=== PATIENT | male | born 1935 | race Caucasian/White ===

== ENCOUNTER 2017-07-23 17:13 | Emergency (ER) | payer MEDICARE ==
[2017-07-23] MEDS ORDERED: DiphenhydrAMINE HCL 50 MG/ML VIAL ONE (18:21)
[2017-07-23] MEDS ORDERED: DEXAMETHASONE SOD PHOSPHATE 4 MG/ML 1ML VIAL ONE (18:22)
== END 2017-07-23 19:09 | disposition home or self-care (01) ==
LOC: EDH 17:13
DX: T78.49XA Other allergy, initial encounter (principal); E11.9 Type 2 diabetes mellitus without complications; Z85.828 Personal history of other malignant neoplasm of skin; X58.XXXA Exposure to other specified factors, initial encounter
CPT/HCPCS: 96372 ×2; 99284; J1100; J1200

== ENCOUNTER 2019-05-09 04:58 | Emergency (ER) | payer MEDICARE ==
[2019-05-09 05:45] LABS: BASOPHILS % (AUTO) 0.4 % (0.0-5.0); EOSINOPHILS % (AUTO) 1.4 % (0.0-8.0); HEMATOCRIT 37.4 % (42-54); LYMPHOCYTES % (AUTO) 12.2 % (21.0-51.0); MEAN CORPUSCULAR VOLUME 88.4 fL (79-99); MONOCYTES % (AUTO) 8.3 % (3.0-13.0); NEUTROPHILS % (AUTO) 77.4 % (40.0-77.0); PLATELET COUNT (AUTO) 267 K/uL (130-400); RED BLOOD CELL COUNT(AUTO) 4.23 MIL/uL (4.50-6.20); RED CELL DISTRIBUTION WIDTH 13.2 % (11.0-15.5)
[2019-05-09 06:00] LABS: CREATININE 1.3 mg/dL (0.5-1.5); POTASSIUM 4.3 mmol/L (3.5-5.1)
[2019-05-09 06:03] LABS: APPEARANCE,URINE Clear (CLEAR); BILIRUBIN,URINE Negative (NEGATIVE); COLOR,URINE Yellow (YELLOW); GLUCOSE, URINE (UA) Negative (NEGATIVE); KETONES,URINE Negative (NEGATIVE); LEUKOCYTE ESTERASE ,URINE Negative (NEGATIVE); NITRATE,URINE Negative (NEGATIVE); OCCULT BLOOD,URINE Trace (NEGATIVE); PROTEIN,URINE POS 1+ mg/dL (NEGATIVE); UROBILINOGEN,URINE 0.2 mg/dL (0.2-1.0)
[2019-05-09 06:04] LABS: BILIRUBIN,TOTAL 0.9 mg/dL (0.2-1.0); TOTAL PROTEIN, SERUM 7.6 g/dL (6.0-8.3)
[2019-05-09 06:08] LABS: BACTERIA,URINE None Seen /HPF (None Seen); RBC,URINE None Seen /HPF (0-1); WBC,URINE None Seen /HPF (0-1)
[2019-05-09] MEDS ORDERED: SODIUM CHLORIDE 0.9% 1000ML 1,000 ML IV ONE (06:13)
== END 2019-05-09 07:34 | disposition home or self-care (01) ==
LOC: EDH 04:58
DX: K57.32 Diverticulitis of large intestine without perforation or abscess without bleeding (principal); K59.00 Constipation, unspecified; E11.9 Type 2 diabetes mellitus without complications
CPT/HCPCS: 36415; 74176; 80053; 81001; 83690; 84484; 85025; 93005; 99285; J7030

== ENCOUNTER 2021-07-24 10:29 | Inpatient (IN) | payer MEDICARE ==
[~2021-07-24] VITALS: Ht 175.3 cm; Wt 82.6 kg
[2021-07-24 11:21] LABS: BASOPHILS % (AUTO) 0.3 % (0.0-5.0); EOSINOPHILS % (AUTO) 0.4 % (0.0-8.0); HEMATOCRIT 32.6 % (42-54); LYMPHOCYTES % (AUTO) 6.2 % (21.0-51.0); MEAN CORPUSCULAR HEMOGLOBIN 31.8 pg (27.0-33.0); MEAN CORPUSCULAR HGB CONC 34.4 g/dL (32.0-36.0); MEAN CORPUSCULAR VOLUME 92.6 fL (79-99); MONOCYTES % (AUTO) 7.2 % (3.0-13.0); NEUTROPHILS % (AUTO) 85.4 % (40.0-77.0); PLATELET COUNT (AUTO) 188 K/uL (130-400); RED BLOOD CELL COUNT(AUTO) 3.52 MIL/uL (4.50-6.20); RED CELL DISTRIBUTION WIDTH 12.8 % (11.0-15.5); WHITE BLOOD COUNT (AUTO) 10.2 K/uL (4.8-10.8)
[2021-07-24 11:40] LABS: CREATININE 1.4 mg/dL (0.5-1.5); POTASSIUM 3.9 mmol/L (3.5-5.1)
[2021-07-24 11:45] LABS: ALBUMIN 3.1 g/dL (3.5-5.0); BILIRUBIN,TOTAL 0.7 mg/dL (0.2-1.0); TOTAL PROTEIN, SERUM 6.1 g/dL (6.0-8.3)
[2021-07-24] MEDS ORDERED: ACETAMINOPHEN 500 MG TABLET ONE (12:08)
[2021-07-24] MEDS ORDERED: CYCLOBENZAPRINE HCL 10 MG TABLET ONE (12:08)
[2021-07-24] MEDS ORDERED: 0.9%NACL 1000ML 1,000 ML IV SCH (12:30)
[2021-07-24] MEDS ORDERED: ACETAMINOPHEN 500 MG TABLET PO ONE (12:30)
[2021-07-24] MEDS ORDERED: CYCLOBENZAPRINE HCL 10 MG TABLET PO ONE (12:30)
[2021-07-24 13:00] LABS: APPEARANCE,URINE CLEAR (CLEAR); BILIRUBIN,URINE NEGATIVE (NEGATIVE); COLOR,URINE YELLOW (YELLOW); GLUCOSE, URINE (UA) 250 mg/dL (NEGATIVE); KETONES,URINE NEGATIVE (NEGATIVE); LEUKOCYTE ESTERASE ,URINE NEGATIVE (NEGATIVE); NITRATE,URINE NEGATIVE (NEGATIVE); OCCULT BLOOD,URINE NEGATIVE (NEGATIVE); PROTEIN,URINE 30 mg/dL (NEGATIVE); UROBILINOGEN,URINE 0.2 mg/dL (0.2-1.0)
[2021-07-24 13:07] LABS: BACTERIA,URINE Rare /HPF (None Seen); RBC,URINE 0-1 /HPF (0-1); SQUAMOUS EPITHELIAL CELL,UR Rare /HPF (0-2); WBC,URINE 0-1 /HPF (0-1)
[2021-07-24] MEDS: 0.9%NACL 1000ML 1,000 ML IV SCH ×2 (15:30→23:41)
[2021-07-24] MEDS ORDERED: ONDANSETRON 4MG INJ IVP PRN (15:30)
[2021-07-24] MEDS ORDERED: LISI40TA9 PO (16:17)
[2021-07-24] MEDS ORDERED: FOLI1 PO (16:17)
[2021-07-24] MEDS ORDERED: GLIP10TA9 PO (16:17)
[2021-07-24] MEDS ORDERED: ATOR10TA69 PO (16:17)
[2021-07-24 16:25] VITALS: BP 133/68
[2021-07-24] MEDS: INSULIN HUMULIN R 100 UNIT/ML 3ML SQ SCH ×2 (16:30→21:04)
[2021-07-24] MEDS ORDERED: AMLO-257 PO (18:18)
[2021-07-24] MEDS ORDERED: ROSU5TAB12 PO (18:20)
[2021-07-24 20:24] VITALS: BP 145/72
[2021-07-24 20:47] LABS: CREATININE,URINE RANDOM 54 mg/dL (30-135); SODIUM,URINE RANDOM 38 mmol/l (40-220)
[2021-07-25] VITALS (7 sets, daily range): BP systolic 127–174; BP diastolic 62–92
[2021-07-25 04:36] LABS: BASOPHILS % (AUTO) 0.4 % (0.0-5.0); EOSINOPHILS % (AUTO) 1.1 % (0.0-8.0); HEMATOCRIT 33.1 % (42-54); LYMPHOCYTES % (AUTO) 8.1 % (21.0-51.0); MEAN CORPUSCULAR HEMOGLOBIN 31.9 pg (27.0-33.0); MEAN CORPUSCULAR HGB CONC 33.5 g/dL (32.0-36.0); MEAN CORPUSCULAR VOLUME 95.1 fL (79-99); MONOCYTES % (AUTO) 10.8 % (3.0-13.0); NEUTROPHILS % (AUTO) 79.2 % (40.0-77.0); PLATELET COUNT (AUTO) 187 K/uL (130-400); RED BLOOD CELL COUNT(AUTO) 3.48 MIL/uL (4.50-6.20); RED CELL DISTRIBUTION WIDTH 12.9 % (11.0-15.5); WHITE BLOOD COUNT (AUTO) 8.6 K/uL (4.8-10.8)
[2021-07-25 05:04] LABS: CREATININE 1.3 mg/dL (0.5-1.5); MAGNESIUM 1.9 mg/dL (1.80-2.40); POTASSIUM 3.8 mmol/L (3.5-5.1); URIC ACID 5.1 mg/dL (2.6-7.2)
[2021-07-25] MEDS: INSULIN HUMULIN R 100 UNIT/ML 3ML SQ SCH ×4 (05:16→21:00)
[2021-07-25] MEDS: MORPHINE 2 MG SYG IVP PRN ×2 (05:28→11:32)
[2021-07-25] MEDS ORDERED: DOCUSATE SODIUM 100 MG CAP PO SCH (08:00)
[2021-07-25] MEDS ORDERED: SITA25TA5 PO (12:48)
[2021-07-25] MEDS: 0.9%NACL 1000ML 1,000 ML IV SCH (13:28)
[2021-07-25] MEDS ORDERED: CLONIDINE HCL 0.2 MG TABLET PO STA (15:57)
[2021-07-25] MEDS: LISINOPRIL 40 MG TABLET PO SCH (16:00)
[2021-07-25] MEDS: FOLIC ACID 1 MG TABLET PO SCH (16:04)
[2021-07-25] MEDS: LACTULOSE 20 GM/30 ML UDCUP PO SCH (20:08)
[2021-07-25] MEDS: GLIPIZIDE 5 MG TABLET PO SCH (20:08)
[2021-07-26] MEDS: LACTULOSE 20 GM/30 ML UDCUP PO SCH ×4 (01:15→20:47)
[2021-07-26 04:23] VITALS: BP 129/67
[2021-07-26] MEDS: INSULIN HUMULIN R 100 UNIT/ML 3ML SQ SCH ×4 (07:30→21:00)
[2021-07-26] MEDS: 0.9%NACL 1000ML 1,000 ML IV SCH ×2 (07:30→20:50)
[2021-07-26 08:00] VITALS: BP 147/73
[2021-07-26] MEDS ORDERED: AMLODIPINE 5 MG TAB PO SCH (09:00)
[2021-07-26] MEDS: ROSUVASTATIN CALCIUM 5 MG PO SCH (09:00)
[2021-07-26] MEDS: FOLIC ACID 1 MG TABLET PO SCH (09:30)
[2021-07-26] MEDS: GLIPIZIDE 5 MG TABLET PO SCH ×2 (09:30→20:48)
[2021-07-26] MEDS: MORPHINE 2 MG SYG IVP PRN (11:11)
[2021-07-26] MEDS: LISINOPRIL 40 MG TABLET PO SCH (11:12)
[2021-07-26 12:00] VITALS: BP 149/78
[2021-07-26] MEDS ORDERED: DOCUSATE SODIUM 100 MG CAP PO PRN (15:00)
[2021-07-26 16:00] VITALS: BP 163/87
[2021-07-26 19:00] VITALS: BP 138/66
[2021-07-26] MEDS: BACLOFEN 10 MG TABLET PO SCH (20:48)
[2021-07-26] MEDS ORDERED: BACLOFEN 10 MG TABLET PO SCH (21:00)
[2021-07-26] MEDS: HYDROCODONE/ACETAMINOPHEN 10/325 MG TAB PO PRN (23:03)
[2021-07-27] VITALS (7 sets, daily range): BP systolic 130–183; BP diastolic 59–89
[2021-07-27] MEDS: LACTULOSE 20 GM/30 ML UDCUP PO SCH ×5 (01:00→22:58)
[2021-07-27] MEDS: INSULIN HUMULIN R 100 UNIT/ML 3ML SQ SCH ×4 (05:25→20:33)
[2021-07-27] MEDS: HYDROCODONE/ACETAMINOPHEN 10/325 MG TAB PO PRN (07:27)
[2021-07-27] MEDS: BACLOFEN 10 MG TABLET PO SCH ×2 (07:27→20:48)
[2021-07-27] MEDS: FOLIC ACID 1 MG TABLET PO SCH (07:28)
[2021-07-27] MEDS: GLIPIZIDE 5 MG TABLET PO SCH ×2 (07:28→20:48)
[2021-07-27] MEDS: ROSUVASTATIN CALCIUM 5 MG PO SCH (07:29)
[2021-07-27] MEDS: LIDOCAINE 5% TOPICAL PATCH TP SCH (07:33)
[2021-07-27] MEDS: LISINOPRIL 40 MG TABLET PO SCH (07:33)
[2021-07-27 07:59] LABS: HEMATOCRIT 36.1 % (42-54); MEAN CORPUSCULAR HEMOGLOBIN 31.9 pg (27.0-33.0); MEAN CORPUSCULAR HGB CONC 34.6 g/dL (32.0-36.0); MEAN CORPUSCULAR VOLUME 92.1 fL (79-99); PLATELET COUNT (AUTO) 224 K/uL (130-400); RED BLOOD CELL COUNT(AUTO) 3.92 MIL/uL (4.50-6.20); RED CELL DISTRIBUTION WIDTH 13.1 % (11.0-15.5); WHITE BLOOD COUNT (AUTO) 8.5 K/uL (4.8-10.8)
[2021-07-27 08:08] LABS: CREATININE 1.4 mg/dL (0.5-1.5)
[2021-07-27 08:38] LABS: BASOPHILS % (MANUAL) 1 % (0-2); LYMPHOCYTES % (MANUAL) 12 % (22-44); MONOCYTES % (MANUAL) 12 % (2-9); SEGMENTED NEUTROPHILS % 75 % (40-70)
[2021-07-27 08:40] LABS: MAN.DIFF COMMENT-IMPRESSION MANUAL DIFFERENTIAL; PLATELET MORPHOLOGY COMMENT ADEQUATE
[2021-07-27] MEDS: 0.9%NACL 1000ML 1,000 ML IV SCH ×2 (10:02→22:58)
[2021-07-27] MEDS ORDERED: MAGNESIUM CITRATE 296 ML SOLUTION PO SCH (16:00)
[2021-07-28] VITALS: BP 157/79
[2021-07-28 04:00] VITALS: BP 160/78
[2021-07-28] MEDS: LACTULOSE 20 GM/30 ML UDCUP PO SCH (04:42)
[2021-07-28] MEDS: INSULIN HUMULIN R 100 UNIT/ML 3ML SQ SCH ×2 (05:27→11:48)
[2021-07-28 08:00] VITALS: BP 137/78
[2021-07-28] MEDS: BACLOFEN 10 MG TABLET PO SCH (08:51)
[2021-07-28] MEDS: GLIPIZIDE 5 MG TABLET PO SCH (08:52)
[2021-07-28] MEDS: LISINOPRIL 40 MG TABLET PO SCH (08:53)
[2021-07-28] MEDS: FOLIC ACID 1 MG TABLET PO SCH (08:53)
[2021-07-28] MEDS: HYDROCODONE/ACETAMINOPHEN 10/325 MG TAB PO PRN (08:54)
[2021-07-28] MEDS: LIDOCAINE 5% TOPICAL PATCH TP SCH (08:54)
[2021-07-28] MEDS: ROSUVASTATIN CALCIUM 5 MG PO SCH (09:00)
[2021-07-28 12:00] VITALS: BP 163/83
[2021-07-28 15:52] VITALS: BP 151/83
== END 2021-07-28 16:16 | disposition home or self-care (01) | DRG 552 ==
LOC: EDH 10:29 → EDHIP 13:45 → 4DH 16:10
PROVIDERS: ADMIT Internal Medicine Infectious Disease; ATTEND Internal Medicine Infectious Disease
DX: S32.039A Unspecified fracture of third lumbar vertebra, initial encounter for closed fracture (principal); E87.1 Hypo-osmolality and hyponatremia; R55 Syncope and collapse; I12.9 Hypertensive chronic kidney disease with stage 1 through stage 4 chronic kidney disease, or unspecified chronic kidney disease; W18.39XA Other fall on same level, initial encounter; N18.30 Chronic kidney disease, stage 3 unspecified; E11.22 Type 2 diabetes mellitus with diabetic chronic kidney disease; E11.65 Type 2 diabetes mellitus with hyperglycemia; E66.9 Obesity, unspecified; E78.00 Pure hypercholesterolemia, unspecified; E78.5 Hyperlipidemia, unspecified; I25.10 Atherosclerotic heart disease of native coronary artery without angina pectoris; Z83.3 Family history of diabetes mellitus; Y93.89 Activity, other specified; Y92.89 Other specified places as the place of occurrence of the external cause; Y99.8 Other external cause status; Z86.19 Personal history of other infectious and parasitic diseases; Z87.19 Personal history of other diseases of the digestive system
CPT/HCPCS: 36415; 70450; 71045; 72131; 72148; 80048; 80053; 81001; 82550; 82570; 82948; 83605; 83735; 83930; 83935; 84300; 84484; 84550; 85025; 93005; 93970; 97039; G0378; J1815

== ENCOUNTER 2021-08-02 06:35 | Emergency (ER) | payer MEDICARE ==
[~2021-08-02] VITALS: Ht 175.3 cm; Wt 79.4 kg
[~2021-08-02 06:35] MED LIST: AMLO-257 PO; FOLI1 PO; GLIP10TA9 PO; LISI40TA9 PO; ROSU5TAB12 PO; SITA25TA5 PO
[2021-08-02 07:33] LABS: HEMATOCRIT 37.6 % (42-54); MEAN CORPUSCULAR HEMOGLOBIN 31.9 pg (27.0-33.0); MEAN CORPUSCULAR HGB CONC 33.8 g/dL (32.0-36.0); MEAN CORPUSCULAR VOLUME 94.5 fL (79-99); PLATELET COUNT (AUTO) 310 K/uL (130-400); RED BLOOD CELL COUNT(AUTO) 3.98 MIL/uL (4.50-6.20); RED CELL DISTRIBUTION WIDTH 13.2 % (11.0-15.5); WHITE BLOOD COUNT (AUTO) 6.4 K/uL (4.8-10.8)
[2021-08-02 07:44] LABS: CREATININE 1.3 mg/dL (0.5-1.5); POTASSIUM 4.2 mmol/L (3.5-5.1)
[2021-08-02 07:50] LABS: BASOPHILS % (AUTO) 0.6 % (0.0-5.0); EOSINOPHILS % (AUTO) 1.6 % (0.0-8.0); LYMPHOCYTES % (AUTO) 11.9 % (21.0-51.0); MONOCYTES % (AUTO) 9.1 % (3.0-13.0); NEUTROPHILS % (AUTO) 76.2 % (40.0-77.0)
[2021-08-02 07:56] LABS: APPEARANCE,URINE CLEAR (CLEAR); BILIRUBIN,URINE NEGATIVE (NEGATIVE); COLOR,URINE YELLOW (YELLOW); GLUCOSE, URINE (UA) NEGATIVE (NEGATIVE); KETONES,URINE NEGATIVE (NEGATIVE); LEUKOCYTE ESTERASE ,URINE NEGATIVE (NEGATIVE); NITRATE,URINE NEGATIVE (NEGATIVE); OCCULT BLOOD,URINE TRACE-INTACT (NEGATIVE); PROTEIN,URINE 100 mg/dL (NEGATIVE); UROBILINOGEN,URINE 0.2 mg/dL (0.2-1.0)
[2021-08-02 08:03] LABS: RBC,URINE 0-1 /HPF (0-1); WBC,URINE 0-1 /HPF (0-1)
[2021-08-02 08:04] LABS: BACTERIA,URINE None Seen /HPF (None Seen); SQUAMOUS EPITHELIAL CELL,UR 0-2 /HPF (0-2)
[2021-08-02] MEDS ORDERED: BENZOCAINE/LANOLIN/ALOE VERA 60 ML AEROSOL TP ONE (08:53)
[2021-08-02] MEDS ORDERED: OCTYL 2-CYANOACRYLATE 1 EACH TP ONE (08:56)
[2021-08-02 09:47] VITALS: BP 124/74
== END 2021-08-02 09:51 | disposition home or self-care (01) ==
LOC: EDH 06:35
DX: S01.01XA Laceration without foreign body of scalp, initial encounter (principal); S70.02XA Contusion of left hip, initial encounter; I10 Essential (primary) hypertension; Z79.84 Long term (current) use of oral hypoglycemic drugs; W18.39XA Other fall on same level, initial encounter; Y93.89 Activity, other specified; Y92.89 Other specified places as the place of occurrence of the external cause; Y99.8 Other external cause status
CPT/HCPCS: 12001; 36415; 70450; 73502; 80048; 81001; 84484; 85025; 93005

== ENCOUNTER → 2021-12-09 | Outpatient (CLI) | payer MEDICARE | END | disposition home or self-care (01) | LOC: RAH 10:41 | PROVIDERS: ATTEND Neurological Surgery | DX: M51.36 Other intervertebral disc degeneration, lumbar region (principal); M47.27 Other spondylosis with radiculopathy, lumbosacral region; M48.56XA Collapsed vertebra, not elsewhere classified, lumbar region, initial encounter for fracture; M48.061 Spinal stenosis, lumbar region without neurogenic claudication | CPT/HCPCS: 72148 ==

== ENCOUNTER 2022-01-13 10:32 | Emergency (ER) | payer MEDICARE ==
[~2022-01-13] VITALS: Ht 167.6 cm; Wt 70.3 kg
[2022-01-13 11:07] VITALS: BP 158/72
[2022-01-13 11:16] LABS: BASOPHILS % (AUTO) 0.4 % (0.0-5.0); EOSINOPHILS % (AUTO) 0.9 % (0.0-8.0); HEMATOCRIT 35.7 % (42-54); LYMPHOCYTES % (AUTO) 9.2 % (21.0-51.0); MEAN CORPUSCULAR HEMOGLOBIN 30.7 pg (27.0-33.0); MEAN CORPUSCULAR HGB CONC 34.5 g/dL (32.0-36.0); MONOCYTES % (AUTO) 8.7 % (3.0-13.0); NEUTROPHILS % (AUTO) 80.4 % (40.0-77.0); PLATELET COUNT (AUTO) 223 K/uL (130-400); RED BLOOD CELL COUNT(AUTO) 4.01 MIL/uL (4.50-6.20); RED CELL DISTRIBUTION WIDTH 12.7 % (11.0-15.5)
[2022-01-13 11:25] LABS: INR 0.95 (0.85-1.15); PROTHROMBIN TIME 10.4 SEC (9.6-11.6)
[2022-01-13 11:26] LABS: PARTIAL THROMBOPLASTIN TIME 28.2 SEC (26.3-35.5)
[2022-01-13 11:34] LABS: CREATININE 1.5 mg/dL (0.5-1.5); POTASSIUM 4.6 mmol/L (3.5-5.1)
[2022-01-13 11:38] LABS: ALBUMIN 3.3 g/dL (3.5-5.0); TOTAL PROTEIN, SERUM 6.8 g/dL (6.0-8.3)
[2022-01-13] MEDS ORDERED: IOHEXOL 350 MG/ML 100ML INFUS..BTL IV ONE (12:56)
[2022-01-13] MEDS ORDERED: CIPR-279 PO (14:11)
== END 2022-01-13 14:25 | disposition home or self-care (01) ==
LOC: EDH 10:32
DX: K52.9 Noninfective gastroenteritis and colitis, unspecified (principal); E11.9 Type 2 diabetes mellitus without complications; E78.00 Pure hypercholesterolemia, unspecified; I10 Essential (primary) hypertension; Z79.84 Long term (current) use of oral hypoglycemic drugs
CPT/HCPCS: 99285; 74177; 82270; 84484; 80053; 85025; 85610; 85730; 86850; 86900; 86901; 36415; 93005; Q9967